=== PATIENT | male | born 1985 | race Caucasian/White ===

== ENCOUNTER 2016-09-22 02:05 | Emergency (ER) | payer BC, OTHER ==
[~2016-09-22] VITALS: Ht 167.6 cm; Wt 78.0 kg
[2016-09-22] MEDS ORDERED: KETOROLAC 60MG/2ML VIAL IM ONE (06:45)
[2016-09-22] MEDS ORDERED: METOCLOPRAMIDE HCL 10MG TABLET PO ONE (06:45)
[2016-09-22 07:15] LABS: BASOPHILS % 1.3 % (0.0-2.0); EOSINOPHILS % 1.7 % (0.0-5.0); HEMATOCRIT. 42.5 % (42.0-52.0); HEMOGLOBIN. 14.8 g/dL (14.0-18.0); LYMPHOCYTES % 26.5 % (20.0-50.0); MEAN CORPUSCULAR HEMOGLOBIN 32.3 pg (28.0-32.0); MEAN CORPUSCULAR VOLUME 92.6 fL (80.0-94.0); MEAN PLATELET VOLUME 7.7 fl (7.4-10.4); MONOCYTES % 11.2 % (2.0-8.0); NEUTROPHILS % 59.3 % (40.0-76.0); PLATELET 251 x1000/uL (130-400); RED BLOOD CELL COUNT 4.59 mill/uL (4.7-6.1); RED CELL DISTRIBUTION WIDTH 13.1 % (11.6-14.6)
[2016-09-22 07:22] LABS: CARBON DIOXIDE 26 mEq/L (21-32); CHLORIDE 106 mEq/L (98-107)
[2016-09-22 07:25] VITALS: BP 109/76
== END 2016-09-22 07:57 | disposition home or self-care (01) ==
LOC: ER 02:05
DX: F17.200 Nicotine dependence, unspecified, uncomplicated (principal); R51 Headache
CPT/HCPCS: 36415; 80048; 85025; 96372; 99284; J1885; J8597

== ENCOUNTER 2022-03-17 01:02 | Emergency (ER) | payer BC, MEDICAID ==
[~2022-03-17] VITALS: Ht 167.6 cm; Wt 85.0 kg
[2022-03-17] MEDS ORDERED: MAGNESIUM/ALUMINUM HYDROXIDE/SIMETHICONE 30ML UDC PO STA (02:15)
[2022-03-17] MEDS ORDERED: SODIUM CHLORIDE 0.9% 1,000 ML IV ONE (02:30)
[2022-03-17 03:09] LABS: BASOPHILS % 1.3 % (0.0-2.0); EOSINOPHILS % 1.7 % (0.0-5.0); HEMATOCRIT. 47.2 % (42.0-52.0); HEMOGLOBIN. 16.1 g/dL (14.0-18.0); LYMPHOCYTES % 31.8 % (20.0-50.0); MEAN CORPUSCULAR HEMOGLOBIN 31.3 pg (28.0-32.0); MEAN CORPUSCULAR VOLUME 91.6 fL (80.0-94.0); MEAN PLATELET VOLUME 7.9 fl (7.4-10.4); MONOCYTES % 7.8 % (2.0-8.0); NEUTROPHILS % 57.4 % (40.0-76.0); PLATELET 260 x1000/uL (130-400); RED BLOOD CELL COUNT 5.15 mill/uL (4.7-6.1); RED CELL DISTRIBUTION WIDTH 13.4 % (11.6-14.6)
[2022-03-17 03:17] LABS: INR 1.1; PROTHROMBIN TIME 11.8 sec (9.6-11.0)
[2022-03-17 03:18] LABS: CHLORIDE 99 mEq/L (98-107)
[2022-03-17 05:30] VITALS: BP 148/98
== END 2022-03-17 05:41 | disposition home or self-care (01) ==
LOC: ER 01:02
DX: K76.0 Fatty (change of) liver, not elsewhere classified (principal); K70.9 Alcoholic liver disease, unspecified
CPT/HCPCS: 36415; 74176; 80053; 83605; 83690; 85025; 85610; 96360; 99284; J7030; 99285

== ENCOUNTER 2023-01-07 01:14 | Emergency (ER) | payer MEDICAID ==
[~2023-01-07] VITALS: Ht 167.6 cm; Wt 74.6 kg
[2023-01-07 01:31] VITALS: BP 157/91; PULSE 98; RESP 16; TEMP 97.8; O2SAT 98
== END 2023-01-07 05:03 | disposition left against medical advice (07) ==
LOC: ER 01:14
DX: I10 Essential (primary) hypertension (principal); Z53.21 Procedure and treatment not carried out due to patient leaving prior to being seen by health care provider
CPT/HCPCS: 93005; 99281

== ENCOUNTER 2024-03-24 19:13 | Emergency (ER) | payer MEDICAID, OTHER ==
[~2024-03-24] VITALS: Ht 177.8 cm; Wt 80.0 kg
[2024-03-24 19:16] VITALS: O2SAT 98
[2024-03-24 21:21] LABS: BASOPHILS % 2.4 % (0.0-2.0); HEMOGLOBIN. 14.6 g/dL (14.0-18.0); MEAN CORPUSCULAR HEMOGLOBIN 33.9 pg (28.0-32.0); MEAN CORPUSCULAR HGB CONC 34.7 g/dL (31.0-37.0); MEAN CORPUSCULAR VOLUME 97.8 fL (80.0-94.0); MEAN PLATELET VOLUME 7.7 fl (7.4-10.4); NEUTROPHILS % 65.6 % (40.0-76.0); PLATELET 256 x1000/uL (130-400); RED CELL DISTRIBUTION WIDTH 12.5 % (11.6-14.6); WHITE BLOOD COUNT 6.4 x1000/uL (4.5-11.0)
[2024-03-24 21:29] LABS: PARTIAL THROMBOPLASTIN TIME 28.2 sec (23.4-31.0); PROTHROMBIN TIME 10.7 sec (9.6-11.0)
[2024-03-24] MEDS: LABETALOL 5MG/ML 4ML INJ IV ONE (21:37)
[2024-03-24] MEDS: METOCLOPRAMIDE HCL 10MG/2ML VIAL IV ONE (21:38)
[2024-03-24 21:54] LABS: CHLORIDE 98 mEq/L (98-107); POTASSIUM 3.3 mEq/L (3.5-5.1); SODIUM 136 mEq/L (136-145)
[2024-03-24 21:55] LABS: CALCIUM 9.7 mg/dL (8.7-10.4); CARBON DIOXIDE 26 mEq/L (21-32)
[2024-03-24 22:00] LABS: CREATININE 1.1 mg/dL (0.6-1.3); GLUCOSE 80 mg/dL (70-105); TROPONIN I HIGH SENSITIVITY 21 ng/L (3.0-53); UREA NITROGEN BLOOD 8 mg/dL (9-23)
[2024-03-25 05:54] VITALS: BP 148/86; PULSE 86; RESP 14; TEMP 36.9; O2SAT 99
== END 2024-03-24 20:18 | disposition left against medical advice (07) ==
LOC: ER 19:13
DX: I16.1 Hypertensive emergency (principal); G43.909 Migraine, unspecified, not intractable, without status migrainosus; F10.90 Alcohol use, unspecified, uncomplicated; Z72.0 Tobacco use; I10 Essential (primary) hypertension; Y90.9 Presence of alcohol in blood, level not specified; Z79.899 Other long term (current) drug therapy
CPT/HCPCS: 80048; 83880; 85025; 85610; 85730; 86850; 86900; 86901; 84484; 36415; 71045; 70450; 93005; 96374; 96375; 99285; J3490; J2765; Z7610 ×3